=== PATIENT | male | born 1950 | race Caucasian/White ===

== ENCOUNTER → 2022-04-10 14:06 | Outpatient (BNVA) | payer MEDICARE, SELFPAY | PROVIDERS: Visit Provider Emergency Medicine | DX: M54.50 Low back pain, unspecified (principal); M25.552 Pain in left hip | CPT/HCPCS: 72100; 73502 ==

== ENCOUNTER → 2022-05-31 14:51 | Outpatient (BNVA) | payer SELFPAY | PROVIDERS: Visit Provider Family Medicine | DX: G62.9 Polyneuropathy, unspecified (principal); Z13.1 Encounter for screening for diabetes mellitus; Z13.6 Encounter for screening for cardiovascular disorders; G25.0 Essential tremor; G31.84 Mild cognitive impairment of uncertain or unknown etiology; Z76.89 Persons encountering health services in other specified circumstances; R60.0 Localized edema; R00.1 Bradycardia, unspecified; M16.12 Unilateral primary osteoarthritis, left hip | CPT/HCPCS: 80053; 80061; 82607; 85025 ==